=== PATIENT | female | born 1975 | race Caucasian/White ===

== ENCOUNTER 2016-12-29 17:16 | Observation (INO) | payer BC, OTHER ==
[~2016-12-29] VITALS: Ht 165.1 cm; Wt 79.3 kg
[2016-12-29] MEDS ORDERED: SODIUM CHLORIDE 0.9% 1,000ML IVBOLUS ONE ×2 (17:30→21:30)
[2016-12-29] MEDS ORDERED: SODIUM CHLORIDE FLUSH 10ML SYR IVF ONE (17:30)
[2016-12-29] MEDS ORDERED: PROMETHAZINE 25 MG/ML, 1ML IM ONE (17:30)
[2016-12-29] MEDS ORDERED: FAMOTIDINE 20 MG/2 ML IVP ONE (17:30)
[2016-12-29] MEDS ORDERED: FAMOTIDINE 20 MG/2 ML ONE (17:48)
[2016-12-29] MEDS ORDERED: DIPHENHYDRAMINE 50 MG/ML, 1ML ONE (17:56)
[2016-12-29] MEDS ORDERED: ONDANSETRON 2MG/ML, 2ML ONE (17:56)
[2016-12-29] MEDS ORDERED: DIPHENHYDRAMINE 50 MG/ML, 1ML IVPush ONE (18:00)
[2016-12-29] MEDS ORDERED: ONDANSETRON 2MG/ML, 2ML IVPush ONE (18:00)
[2016-12-29 19:02] LABS: BLOOD UREA NITROGEN 10 mg/dL (7-18)
[2016-12-29 19:08] LABS: HEMOGLOBIN 14.9 g/dL (11.7-16.4)
[2016-12-29] MEDS ORDERED: METOCLOPRAMIDE 5 MG/ML, 2ML ONE (19:09)
[2016-12-29 19:11] LABS: ASPARTATE AMINO TRANSFERASE 14 U/L (15-37)
[2016-12-29] MEDS ORDERED: METOCLOPRAMIDE 5 MG/ML, 2ML IVPush ONE (19:30)
[2016-12-29] MEDS ORDERED: D5%-0.45% NACL 1,000 ML IV ONE (21:24)
[2016-12-29] MEDS ORDERED: PROCHLORPERAZINE 5 MG/ML, 2ML IVPush ONE (21:30)
[2016-12-29] MEDS ORDERED: ONDANSETRON 2MG/ML, 2ML IVPush PRN (21:30)
[2016-12-29] MEDS ORDERED: PROCHLORPERAZINE 5 MG/ML, 2ML IVPush PRN (23:00)
[2016-12-29] MEDS: METOCLOPRAMIDE 5 MG/ML, 2ML IVPush SCH (23:00)
[2016-12-30 00:08] VITALS: BP 99/65
[2016-12-30] MEDS: ONDANSETRON 4 MG TABLET PO SCH ×3 (00:30→16:32)
[2016-12-30 03:38] VITALS: BP 99/63
[2016-12-30] MEDS: D5%-LACTATED RINGERS 1,000 ML IV SCH ×3 (06:04→14:47)
[2016-12-30 07:33] VITALS: BP 103/67
[2016-12-30] MEDS: METOCLOPRAMIDE 5 MG/ML, 2ML IVPush SCH ×2 (08:06→16:00)
[2016-12-30 13:53] VITALS: BP 100/66
[2016-12-30] MEDS ORDERED: SCOPOLAMINE PATCH, 1.5MG PATCH.TD72 TD ONE (19:00)
[2016-12-30 19:21] VITALS: BP 101/68
== END 2016-12-30 21:54 | disposition home or self-care (01) ==
LOC: ED 20:03 → INTOOBSV 21:24 → EDIP 21:24 → 4EST 23:04
PROVIDERS: ADMIT Student in an Organized Health Care Education/Training Program; ATTEND Student in an Organized Health Care Education/Training Program
DX: O21.1 Hyperemesis gravidarum with metabolic disturbance (principal); O09.521 Supervision of elderly multigravida, first trimester; Z3A.01 Less than 8 weeks gestation of pregnancy
CPT/HCPCS: 36415; 76801; 80053; 81001; 85025; 96361; 96374; 96375; 99285; G0378; J0780; J1200; J2405; J2765; J7030; Q0162; J7121; S0028

== ENCOUNTER 2017-01-06 13:05 | Observation (INO) | payer OTHER ==
[~2017-01-06] VITALS: Ht 165.1 cm; Wt 73.4 kg
[2017-01-06 14:00] LABS: HEMOGLOBIN 15.9 g/dL (11.7-16.4)
[2017-01-06] MEDS ORDERED: METOCLOPRAMIDE 5 MG/ML, 2ML IVPush ONE (14:00)
[2017-01-06] MEDS ORDERED: SODIUM CHLORIDE 0.9% 1,000ML IVBOLUS ONE (14:00)
[2017-01-06 14:18] LABS: BLOOD UREA NITROGEN 18 mg/dL (7-18)
[2017-01-06] MEDS ORDERED: METOCLOPRAMIDE 5 MG/ML, 2ML ONE (14:26)
[2017-01-06] MEDS ORDERED: PROCHLORPERAZINE 5 MG/ML, 2ML IVPush ONE (17:30)
[2017-01-06] MEDS ORDERED: PROCHLORPERAZINE 5 MG/ML, 2ML ONE (17:32)
[2017-01-06] MEDS ORDERED: ONDANSETRON 2MG/ML, 2ML ONE (18:05)
[2017-01-06] MEDS ORDERED: ONDANSETRON 2MG/ML, 2ML IVPush ONE (18:30)
[2017-01-06] MEDS ORDERED: chlorPROMAZINE 25 MG/ML, 2ML IM PRN (20:05)
[2017-01-06] MEDS ORDERED: THIAMINE 100 MG in SODIUM CHLORIDE 0.9% 50 ML IV SCH (20:30)
[2017-01-06] MEDS ORDERED: ONDANSETRON 2MG/ML, 2ML IVPush PRN (20:30)
[2017-01-06] MEDS: D5%-0.45NACL+KCL 20MEQ 1,000 ML IV SCH (22:43)
[2017-01-07 04:57] LABS: BLOOD UREA NITROGEN 12 mg/dL (7-18)
[2017-01-07 05:01] LABS: ASPARTATE AMINO TRANSFERASE 13 U/L (15-37)
[2017-01-07] MEDS: D5%-0.45NACL+KCL 20MEQ 1,000 ML IV SCH (06:27)
[2017-01-07 06:28] VITALS: BP 94/57
[2017-01-07 08:43] VITALS: BP 91/54
[2017-01-07 13:30] VITALS: BP 96/68
[2017-01-07] MEDS ORDERED: CHLO25TA4 PO (14:35)
== END 2017-01-07 15:45 | disposition home or self-care (01) ==
LOC: ED 18:44 → EDIP 19:29 → INTOOBSV 19:29 → 4WST 01-07 05:36 → DCLOUNGE 01-07 15:38
PROVIDERS: ADMIT Obstetrics & Gynecology; ATTEND Obstetrics & Gynecology
DX: O21.0 Mild hyperemesis gravidarum (principal); O99.282 Endocrine, nutritional and metabolic diseases complicating pregnancy, second trimester; E86.0 Dehydration; O09.521 Supervision of elderly multigravida, first trimester; Z3A.01 Less than 8 weeks gestation of pregnancy; Z90.49 Acquired absence of other specified parts of digestive tract; Z82.49 Family history of ischemic heart disease and other diseases of the circulatory system; Z80.9 Family history of malignant neoplasm, unspecified
CPT/HCPCS: 36415; 76801; 80048; 80053; 81003; 82040; 83735; 84443; 84702; 85025; 96361; 96365; 96372; 96375; 99285; G0378; J0780; J2405; J2765; J3230; J3411; J3480; J7030

== ENCOUNTER 2017-02-28 19:01 | Emergency (ER) | payer OTHER ==
[~2017-02-28] VITALS: Ht 165.1 cm; Wt 74.3 kg
[~2017-02-28 19:01] MED LIST: CHLO25TA4 PO
[2017-02-28] MEDS ORDERED: SODIUM CHLORIDE FLUSH 10ML SYR IVF ONE (19:30)
[2017-02-28] MEDS ORDERED: METOCLOPRAMIDE 5 MG/ML, 2ML IVPush ONE (19:30)
[2017-02-28] MEDS ORDERED: SODIUM CHLORIDE 0.9% 1,000ML IVBOLUS ONE (19:30)
[2017-02-28] MEDS ORDERED: ONDANSETRON 2MG/ML, 2ML IVPush ONE (19:30)
[2017-02-28] MEDS ORDERED: ONDANSETRON 2MG/ML, 2ML ONE (19:40)
[2017-02-28] MEDS ORDERED: METOCLOPRAMIDE 5 MG/ML, 2ML ONE (19:40)
[2017-02-28 19:56] VITALS: BP 115/66
[2017-02-28 20:16] LABS: BLOOD UREA NITROGEN 9 mg/dL (7-18)
== END 2017-02-28 20:49 | disposition home or self-care (01) ==
LOC: ED 19:49
DX: O21.0 Mild hyperemesis gravidarum (principal)
CPT/HCPCS: 36415; 80048; 82040; 96361; 96374; 96375; 99284; J2405; J2765; J7030

== ENCOUNTER 2017-08-05 21:25 | Outpatient (CLI) | payer OTHER ==
[~2017-08-05] VITALS: Ht 165.1 cm; Wt 78.2 kg
[~2017-08-05 21:25] MED LIST changes: +ONDA4TAB7 PO
[2017-08-05 21:30] VITALS: BP 114/70
== END 2017-08-05 23:58 | disposition home or self-care (01) ==
LOC: LDOP 21:25
PROVIDERS: ATTEND Obstetrics & Gynecology
DX: O26.893 Other specified pregnancy related conditions, third trimester (principal); O21.0 Mild hyperemesis gravidarum; R10.9 Unspecified abdominal pain; Z3A.37 37 weeks gestation of pregnancy
CPT/HCPCS: 59025; 76819; 81001; 87086; 99211; G0463